=== PATIENT | female | born 1980 | race Caucasian/White ===

== ENCOUNTER 2017-02-04 08:35 | Emergency (ER) | payer OTHER ==
[2017-02-04 09:13] LABS: HEMOGLOBIN 13.2 gm/dl (12.3-15.3); RED BLOOD COUNT 4.29 M/UL (4.00-5.10); WHITE BLOOD COUNT 7.4 K/UL (4.5-11.0)
[2017-02-04 09:34] LABS: BUN/CREATININE RATIO 11 (0-10)
== END 2017-02-04 17:27 | disposition home or self-care (01) ==
LOC: ER1 08:35
PROVIDERS: Physician Assistant
DX: R07.81 Pleurodynia (principal); R06.02 Shortness of breath; R42 Dizziness and giddiness; R11.0 Nausea; F17.210 Nicotine dependence, cigarettes, uncomplicated; Z88.5 Allergy status to narcotic agent; Z90.49 Acquired absence of other specified parts of digestive tract
CPT/HCPCS: 36415; 71010; 80053; 81001; 82550; 82553; 83874; 84484; 84703; 85025; 85379; 93005; 99284

== ENCOUNTER → 2017-07-19 | Outpatient (CLI) | payer OTHER | LOC: KOH-I 14:27 | DX: R51 Headache (principal) | CPT/HCPCS: 70450 ==